=== PATIENT | male | born 1950 | race Caucasian/White ===

== ENCOUNTER 2021-02-19 17:02 | Emergency (ER) | payer MEDICARE, MEDICAID ==
[~2021-02-19] VITALS: Ht 175.3 cm; Wt 81.8 kg
[2021-02-19 18:33] LABS: BASOPHILS % (AUTO) 0.8 % (0.0-2.0); EOSINOPHILS % (AUTO) 3.1 % (1.0-6.0); HEMATOCRIT 35.3 % (41-53); HEMOGLOBIN 11.3 g/dL (13.5-17.5); LYMPHOCYTES # (AUTO) 1.7 K/uL (1.0-4.8); LYMPHOCYTES % (AUTO) 21.8 % (22.0-44.0); MEAN CORPUSCULAR HEMOGLOBIN 29.6 pg (26.0-34.0); MEAN CORPUSCULAR VOLUME 93 fL (80-100); MONOCYTES # (AUTO) 0.8 K/uL (0.1-1.0); MONOCYTES % (AUTO) 10.2 % (2.0-9.0); NEUTROPHILS # (AUTO) 4.9 K/uL (1.8-7.7); NEUTROPHILS % (AUTO) 64.1 % (40.0-70.0); PLATELET COUNT (AUTO) 286 K/uL (150-450); RED BLOOD CELL COUNT(AUTO) 3.81 MIL/uL (4.50-5.90); RED CELL DISTRIBUTION WIDTH 17.7 % (11.5-14.5)
[2021-02-19 18:43] LABS: ANION GAP 10 mmol/L (8-16); CALCIUM, TOTAL 9.6 mg/dL (8.8-10.5); CARBON DIOXIDE 25 mmol/L (22-29); CHLORIDE 108 mmol/L (98-107); CREATININE 1.01 mg/dL (0.60-1.30); GLUCOSE,RANDOM 93 mg/dL (70-110); POTASSIUM 3.9 mmol/L (3.5-5.1); SODIUM SERUM 143 mmol/L (136-145); UREA NITROGEN, BLOOD 17 mg/dL (7-18)
[2021-02-19 18:45] LABS: GLOMERULAR FILTR. RATE CALC > 60 mL/min (>60)
[2021-02-19 18:49] LABS: PROTHROMBIN TIME 10.3 SEC (9.4-11.6)
[2021-02-19 18:58] LABS: B-TYPE NATRIURETIC PEPTIDE 99 pg/mL (0-100)
[2021-02-19 19:07] LABS: ALANINE AMINOTRANSFERASE 15 U/L (12-78); ALBUMIN 3.3 g/dL (3.4-5.0); ALKALINE PHOSPHATASE 116 U/L (46-116); ASPARTATE AMINOTRANSFERASE 18 U/L (15-37); BILIRUBIN,TOTAL 0.1 mg/dL (0.1-1.0); CREATINE KINASE, TOTAL ONLY 124 U/L (39-308); TOTAL PROTEIN, SERUM 8.6 g/dL (6.4-8.2)
[2021-02-19] MEDS ORDERED: CefTRIAXone 1 GM/DEXTROSE 50 ML IV ONE (21:15)
[2021-02-19] MEDS ORDERED: AZITHROMYCIN 500 MG/NS 250 ML IV ONE (21:15)
[2021-02-19] MEDS ORDERED: MAGNESIUM SULFATE 4 GM/WATER 100 ML IV PRN (21:45)
[2021-02-19] MEDS ORDERED: MAGNESIUM OXIDE 400 MG TABLET PO PRN (21:45)
[2021-02-19] MEDS ORDERED: MAGNESIUM SULFATE 2 GM/WATER 50 ML IV PRN (21:45)
[2021-02-19] MEDS ORDERED: ACETAMINOPHEN 325 MG TABLET PO PRN (21:45)
[2021-02-19] MEDS ORDERED: CARVEDILOL 3.125 MG TABLET PO SCH (21:45)
[2021-02-19] MEDS ORDERED: SODIUM CHLORIDE 0.9% 1,000 ML IV ONE (21:45)
[2021-02-19] MEDS ORDERED: LORazepam 2 MG/ML VIAL IVP PRN (21:45)
[2021-02-19] MEDS ORDERED: MAGNESIUM HYDROXIDE SUSPENSION 30 ML UDCUP PO PRN (21:45)
[2021-02-19 23:18] LABS: ALBUMIN 2.6 g/dL (3.4-5.0); MAGNESIUM 2.4 mg/dL (1.80-2.40)
[2021-02-19] MEDS: HEPARIN SODIUM,PORCINE 5,000 UNITS/ML VIAL SQ SCH (23:58)
[2021-02-20 01:00] LABS: COVID AG,FIA SOURCE NASOPHARYNGEAL
[2021-02-20] MEDS: HEPARIN SODIUM,PORCINE 5,000 UNITS/ML VIAL SQ SCH (07:23)
[2021-02-20] MEDS ORDERED: CARVEDILOL 6.25 MG TABLET PO SCH (09:00)
[2021-02-20] MEDS ORDERED: FAMOTIDINE 20 MG TABLET PO SCH (09:00)
[2021-02-20] MEDS ORDERED: MULTIVITAMINS WITH MINERALS, THERAPEUTIC TABLET PO SCH ×2 (09:00)
[2021-02-20 11:34] VITALS: BP 135/62
== END 2021-02-20 12:26 | disposition left against medical advice (07) ==
LOC: EMS 17:05
DX: J18.9 Pneumonia, unspecified organism (principal); I48.20 Chronic atrial fibrillation, unspecified; F10.229 Alcohol dependence with intoxication, unspecified; R53.1 Weakness; Z20.822 Contact with and (suspected) exposure to COVID-19; Y90.7 Blood alcohol level of 200-239 mg/100 ml
CPT/HCPCS: 36415; 71045; 80053; 82040; 82550; 83735; 83880; 84484; 85025; 85610; 85730; 87040; 87426; 93005; 96365; 96372; 99284; G0480; J0456; J0696; J1644; J7030; U0003; 99285